=== PATIENT | male | born 1975 | race American Indian/Alaskan Native ===

== ENCOUNTER → 2025-01-12 | Outpatient (CLI) | payer MEDICAID, SELFPAY ==
--- NOTE | 2025-01-12 10:39 | XR_ITS ---
EXAMINATION: Cervical spine 3 views TECHNIQUE: AP, lateral, coned AP odontoid cervical spine 3 views Date and time: January 12, 2025, 1057 hours INDICATIONS: Neck pain 1 year. FINDINGS: Satisfactory line mid cervical vertebral bodies Prominent osteophytes anteriorly C4-C5 No cervical fracture No significant cervical disc narrowing Intact odontoid IMPRESSION: Moderate cervical spondylosis No acute cervical fracture
--- NOTE | 2025-01-12 10:39 | XR_ITS ---
EXAMINATION: Lumbar spine 3 views TECHNIQUE: AP lateral, lateral lower lumbar spine 3 views Date and time: January 12, 2025, 1103 hours INDICATIONS: Low back pain 1 year. FINDINGS: Satisfactory alignment lumbar vertebral bodies on the lateral view Moderate disc narrowing posteriorly L5-S1 No lumbar fracture. No spondylolisthesis IMPRESSION: Moderate degenerative disc disease L5-S1
--- NOTE | 2025-01-12 10:39 | XR_ITS ---
EXAMINATION: Thoracic spine 3 views TECHNIQUE: AP lateral coned lateral upper dorsal spine 3 views Date and time: January 12, 2025, 1054 hours INDICATIONS: Mid back pain 1 year. FINDINGS: Adequate alignment thoracic vertebral bodies No acute thoracic fracture Moderate diffuse thoracic disc narrowing Prominent thoracic spondylosis IMPRESSION: Prominent thoracic spondylosis
== END | disposition home or self-care (01) ==
LOC: CDIM 10:18
PROVIDERS: PCP Nurse Practitioner; Referring Provider Nurse Practitioner; Visit Provider Nurse Practitioner
DX: M47.812 Spondylosis without myelopathy or radiculopathy, cervical region (principal); M47.814 Spondylosis without myelopathy or radiculopathy, thoracic region; M51.370 Other intervertebral disc degeneration, lumbosacral region with discogenic back pain only
CPT/HCPCS: 72040; 72070; 72100